=== PATIENT | female | born 1945 | race Caucasian/White ===

== ENCOUNTER → 2017-05-01 | Outpatient (CLI) | payer MEDICARE, MEDICAID ==
[~2017-05-01] MED LIST: AMLO5TAB4 PO; CLON-275 PO; ESTR0.5T PO; FURO-92 PO; FURO-93 PO; GEMF600T3 PO; HYDR12.53 PO; LOSA50TA2 PO; LOVA20TA2 PO; MECL25TA4 PO; POLY17PO5 PO
[2017-05-01 13:07] LABS: BLOOD UREA NITROGEN 20 mg/dL (7-18)
[2017-05-01 13:37] LABS: ASPARTATE AMINO TRANSFERASE 22 U/L (15-37)
== END | disposition home or self-care (01) ==
LOC: LAB 12:36
PROVIDERS: ATTEND Nurse Practitioner
DX: M51.36 Other intervertebral disc degeneration, lumbar region (principal); M48.07 Spinal stenosis, lumbosacral region; M48.06 Spinal stenosis, lumbar region; E03.9 Hypothyroidism, unspecified; E78.5 Hyperlipidemia, unspecified; I10 Essential (primary) hypertension
CPT/HCPCS: 36415; 72110; 80053; 80061; 82043; 82570; 84443